=== PATIENT | male | born 1955 | race Hispanic/Latino ===

== ENCOUNTER 2022-04-08 09:49 | Outpatient (CLI) | payer MEDICARE ==
[2022-04-08 19:52] LABS: SARS-CoV-2 PCR by NAA Not Detected (NotDetected)
== END 2022-04-08 09:50 | disposition home or self-care (01) ==
LOC: LABBT 09:49
PROVIDERS: ATTEND Ophthalmology Retina Specialist
DX: Z20.822 Contact with and (suspected) exposure to COVID-19 (principal)
CPT/HCPCS: U0003; U0005

== ENCOUNTER 2022-04-11 09:46 | Day surgery (SDC) | payer MEDICARE ==
[2022-04-09 13:12] VITALS: BMI 28.8
[~2022-04-11 09:46] MED LIST: Fluorouracil 100 MG, EPINEPHrine 0.3 MG, Dextrose 50% 3 ML in Ophthalmic Irrigation Sol... IRR SCH
[2022-04-11] MEDS ORDERED: Phenylephrine 2.5% Ophth Soln 5 ML BOT ONE (10:02)
[2022-04-11] MEDS ORDERED: Cyclopentolate 1% Opth Drop 2 ML BOT ONE (10:02)
[2022-04-11] MEDS ORDERED: Midazolam HCl 2 mg/2 ml Vial ONE (10:38)
[2022-04-11] MEDS ORDERED: Fentanyl 100 MCG/2 ML VIAL ONE (10:38)
[2022-04-11] MEDS ORDERED: Bupivacaine 0.75% 10 ML VIAL ONE (10:45)
[2022-04-11] MEDS ORDERED: Lidocaine 1% PF 5 ML VIAL ONE (10:45)
[2022-04-11] MEDS ORDERED: PROPOFOL 200 MG/20 ML VIAL ONE (10:45)
[2022-04-11] MEDS ORDERED: Maxitrol 0.1% Opth Oint 3.5 GM TUBE ONE (10:45)
[2022-04-11] MEDS ORDERED: CEFAZOLIN 1 GM VIAL ONE (10:45)
[2022-04-11] MEDS ORDERED: Dextrose 50% Abboject 50 ML SYRINGE ONE (10:45)
[2022-04-11] MEDS ORDERED: Triamcinolone 40 MG/ML VIAL ONE (10:45)
[2022-04-11] MEDS ORDERED: Lidocaine 4% PF 5 ML AMP ONE (10:45)
== END 2022-04-11 13:11 | disposition home or self-care (01) ==
LOC: SDC 09:46
PROVIDERS: ATTEND Ophthalmology Retina Specialist
PROC: 08T43ZZ Resection of Right Vitreous, Percutaneous Approach (ICD-10-PCS; principal; 2022-04-11)
PROC: 08NE3ZZ Release Right Retina, Percutaneous Approach (ICD-10-PCS; 2022-04-11)
DX: H33.41 Traction detachment of retina, right eye (principal); I10 Essential (primary) hypertension; E78.5 Hyperlipidemia, unspecified; E11.9 Type 2 diabetes mellitus without complications; Z87.891 Personal history of nicotine dependence; Z79.84 Long term (current) use of oral hypoglycemic drugs; Z79.899 Other long term (current) drug therapy; Z88.8 Allergy status to other drugs, medicaments and biological substances
CPT/HCPCS: 67113; C1814; J0171; J0690; J2250; J2704; J3010; J3301; J3490; J7999; J9190